=== PATIENT | female | born 1965 | race Caucasian/White ===

== ENCOUNTER → 2017-01-20 | Outpatient (CLI) | payer BC ==
[~2017-01-20] MED LIST: ATEN50TA2 PO; DEXI30CA PO; IBUP200C PO; SIMV20TA2 PO
[2017-01-20 09:02] LABS: MEAN CORPUSCULAR HEMOGLOBIN 27.4 pg (27.0-33.0); MEAN CORPUSCULAR HGB CONC 33.2 g/dl (32.0-36.5); MEAN CORPUSCULAR VOLUME 82.5 fl (80.0-96.0); PLATELET COUNT, AUTOMATED 101 k/mm3 (150-450); RED CELL DISTRIBUTION WIDTH 13.4 % (11.5-14.5); WHITE BLOOD COUNT 3.4 K/mm3 (4.0-10.0)
[2017-01-20 09:34] LABS: ALBUMIN 3.6 GM/DL (3.2-5.2); ALKALINE PHOSPHATASE 86 U/L (45-117); ALT/SGPT 19 U/L (12-78); ANION GAP 7 MEQ/L (8-16); AST/SGOT 9 U/L (15-37); BILIRUBIN,TOTAL 0.3 MG/DL (0.2-1.0); BLOOD UREA NITROGEN 12 MG/DL (7-18); CALCIUM LEVEL 8.3 MG/DL (8.5-10.1); CARBON DIOXIDE LEVEL 28 MEQ/L (21-32); CHLORIDE LEVEL 110 MEQ/L (98-107); CHOLESTEROL LEVEL 219 MG/DL (<200); CREATININE FOR GFR 0.79 MG/DL (0.55-1.02); GLOMERULAR FILTRATION RATE > 60.0 (>51); GLUCOSE, FASTING 115 MG/DL (70-105); POTASSIUM SERUM 4.7 MEQ/L (3.5-5.1); SODIUM LEVEL 145 MEQ/L (136-145); TOTAL PROTEIN 7.2 GM/DL (6.4-8.2); TRIGLYCERIDES LEVEL 98 MG/DL (<150)
== END ==
LOC: M LAB 08:17
PROVIDERS: ATTEND Physician Assistant
DX: I10 Essential (primary) hypertension (principal)

== ENCOUNTER → 2017-02-06 | Outpatient (REF) | payer BC ==
[2017-02-06 14:25] LABS: REASON FOR REVIEW COMPREHENSIVE REVIEW
[2017-02-06 14:47] LABS: FOLATE > 24.0 NG/ML; VITAMIN B12 LEVEL 536 PG/ML
== END ==
LOC: M LAB REF 12:55
PROVIDERS: ATTEND Internal Medicine Medical Oncology
DX: D69.6 Thrombocytopenia, unspecified (principal)

== ENCOUNTER 2017-02-23 19:07 | Emergency (ER) | payer BC ==
[~2017-02-23] VITALS: Ht 152.4 cm; Wt 72.6 kg
[2017-02-23] MEDS ORDERED: OXYCODONE/APAP 5MG/325MG(BULK FOR ED) 1 TABLET PO ONE (22:15)
[2017-02-23] MEDS ORDERED: PERC5TAB6 PO (22:24)
[2017-02-23 22:52] VITALS: BP 112/52
--- NOTE | 2017-02-24 08:43 | REP ---
RIGHT SHOULDER, THREE VIEW: HISTORY: Pain. COMPARISON: 01/08/2009 There is no acute fracture or dislocation. There is narrowing of the joint spaces. Osteophytes are present at the acromioclavicular joint. Calcification is present lateral to the head of the humerus. This represents ligamentous or tendon calcification. IMPRESSION: Degenerative change as described above. Signed by Med Adan MD 02/24/2017 08:53 A
== END 2017-02-23 22:53 | disposition home or self-care (01) ==
LOC: M ED 20:14
DX: M25.511 Pain in right shoulder (principal); M19.011 Primary osteoarthritis, right shoulder; K58.9 Irritable bowel syndrome, unspecified; Z91.81 History of falling; Z79.899 Other long term (current) drug therapy

== ENCOUNTER → 2017-09-25 | Outpatient (REF) | payer BC ==
[~2017-09-25] MED LIST changes: -DEXI30CA PO; +DEXI30CA2 PO; -IBUP200C PO; +IBUP200C10 PO; +PERC5TAB12 PO
== END ==
LOC: M LAB REF 15:03
PROVIDERS: ATTEND Physician Assistant
DX: R30.0 Dysuria (principal)

== ENCOUNTER → 2019-02-24 | Outpatient (CLI) | payer BC ==
[~2019-02-24] MED LIST changes: -IBUP200C10 PO; +IBUP200C25 PO; +SLOW160T12 PO; +SLOW160T8 PO; +VITA50005 PO
--- NOTE | 2019-02-24 08:21 | REP ---
Clinical: Thrombocytopenia. Technique: Real time perez scale ultrasound using curved array transducer. Findings: Liver demonstrates mild fatty infiltration without focal hepatic lesion. Spleen is enlarged and measures 11.9 x 4.7 x 12.7 cm (splenic index 710). No focal splenic lesion identified. Pancreas is unremarkable. The bilateral kidneys are normal in reniform shape without hydronephrosis. Right kidney measures 10.9 x 5.9 x 5.9 cm. Left kidney measures 10.4 x 5.8 x 5.9 cm. The patient is noted to be status post cholecystectomy. No biliary ductal dilatation is appreciated and the common bile duct measures 5.6 mm diameter. Abdominal aorta appears normal and measures 2.2 cm maximal diameter. No ascites. Impression: 1. Hepatic steatosis. 2. Splenomegaly. Electronically Signed by Taiwo Bedoya MD 02/24/2019 08:12 A
== END ==
LOC: M RAD 07:29
PROVIDERS: ATTEND Internal Medicine Hematology & Oncology
DX: D69.6 Thrombocytopenia, unspecified (principal); R16.1 Splenomegaly, not elsewhere classified; K76.0 Fatty (change of) liver, not elsewhere classified

== ENCOUNTER → 2019-04-02 | Outpatient (CLI) | payer BC ==
[~2019-04-02] MED LIST changes: +HYDR-3713 PO; +KEFL500C17 PO; +PRED20TA PO; +ULTR50TA8 PO
--- NOTE | 2019-04-02 15:02 | REP ---
Clinical: Pain with recent trauma/injury. Technique: AP, lateral, bilateral oblique views of the right wrist. Findings: Mild osteopenia and generalized age-related changes are appreciated without evidence for acute fracture or dislocation. There is a chronic-appearing smoothly delineated ovoid calcification anterior to the proximal carpal row measuring approximately 8 mm in maximal length. Finding is nonspecific but should be correlated with history and may be related to prior steroid injection for carpal tunnel syndrome versus calcific tendinopathy. Impression: 1. Osteopenia and generalized age-related changes. 2. No acute fracture dislocation. 3. Calcification as described above requires correlation. Electronically Signed by Taiwo Bedoya MD 04/02/2019 10:46 A
--- NOTE | 2019-04-02 15:02 | REP ---
Clinical: Pain. Technique: AP, lateral, bilateral oblique views of the right hand. Findings: Generalized osteopenia and age-related degenerative changes are appreciated along with mild arthritic changes primarily involving the interphalangeal joints. No acute fracture or dislocation. No focal swelling. An ovoid smooth calcification is identified overlying the proximal carpal row in the wrist which may represent underlying chronic calcific tendinopathy or changes related to prior steroid injection. Impression: Generalized osteopenia and degenerative changes. No acute fracture or dislocation. Electronically Signed by Taiwo Bedoya MD 04/02/2019 10:46 A
== END ==
LOC: M RAD 10:17
PROVIDERS: ATTEND Physician Assistant
DX: M85.841 Other specified disorders of bone density and structure, right hand (principal); M71.431 Calcium deposit in bursa, right wrist; M19.041 Primary osteoarthritis, right hand

== ENCOUNTER 2019-04-05 08:01 | Emergency (ER) | payer BC ==
[~2019-04-05] VITALS: Ht 152.4 cm; Wt 75.5 kg
[~2019-04-05 08:01] MED LIST changes: -HYDR-3713 PO; -KEFL500C17 PO; -PRED20TA PO; -ULTR50TA8 PO
[2019-04-05 08:02] VITALS: BP 152/85
[2019-04-05] MEDS ORDERED: PRED20TA PO ×2 (08:08→08:52)
[2019-04-05] MEDS ORDERED: HYDR-3713 PO (08:08)
[2019-04-05] MEDS ORDERED: ULTR50TA8 PO (08:52)
[2019-04-05] MEDS ORDERED: KEFL500C17 PO (08:52)
== END 2019-04-05 09:06 | disposition home or self-care (01) ==
LOC: M ED 08:01
DX: M77.8 Other enthesopathies, not elsewhere classified (principal); G43.909 Migraine, unspecified, not intractable, without status migrainosus; K21.9 Gastro-esophageal reflux disease without esophagitis

== ENCOUNTER 2020-04-08 09:31 | Emergency (ER) | payer BC ==
[~2020-04-08] VITALS: Ht 152.4 cm; Wt 77.4 kg
[~2020-04-08 09:31] MED LIST changes: +HYDR-3713 PO; +KEFL500C17 PO; +PRED20TA PO; -SIMV20TA2 PO; +SIMV20TA22 PO; +ULTR50TA8 PO
[2020-04-08] MEDS ORDERED: KETOROLAC 30 MG/ML 1ML VIAL IV ONE (10:15)
[2020-04-08] MEDS ORDERED: ISOVUE-370 76% 100ML VIAL As Ordered ONE (11:09)
[2020-04-08] MEDS ORDERED: CYCL5TAB PO (11:49)
[2020-04-08] MEDS ORDERED: NAPR-837 PO (11:49)
--- NOTE | 2020-04-08 11:52 | REP ---
Clinical: Pain and swelling. Technique: Axial contrast enhanced images from the skull base to the thoracic inlet with coronal and sagittal re-formations using 75 ml Isovue 370 intravenous contrast material. Findings: The visualized nasopharynx, oropharynx and hypopharynx along with surrounding soft tissue structures are normal. There is no evidence for mass or mass effect. Parotid and glandular tissue appears normal. Airway is patent, midline and grossly unremarkable. Vascular structures of the neck are symmetric and normal. No adenopathy. No inflammatory stranding, fluid collection or mass. Osseous structures are intact. Visualized sinuses and mastoid air cells are clear. Impression: Normal contrast enhanced CT of the neck. Electronically Signed by Taiwo Bedoya MD 04/08/2020 11:44 A
[2020-04-08 12:03] VITALS: BP 162/73
== END 2020-04-08 12:03 | disposition home or self-care (01) ==
LOC: M ED 09:31
DX: M54.2 Cervicalgia (principal); K21.9 Gastro-esophageal reflux disease without esophagitis; E78.5 Hyperlipidemia, unspecified; D69.6 Thrombocytopenia, unspecified; Z79.899 Other long term (current) drug therapy
CPT/HCPCS: 70491; 80047; 96374; 99284; J1885; Q9967

== ENCOUNTER 2020-04-30 19:00 | Emergency (ER) | payer BC ==
[~2020-04-30 19:00] MED LIST changes: +CYCL5TAB PO; +NAPR-837 PO
[2020-04-30] MEDS ORDERED: ISOVUE-370 76% 100ML VIAL As Ordered ONE (22:26)
[2020-05-01] MEDS ORDERED: cefTRIAXone SOD 1GM VIAL (J0696 PER 250MG) ONE (20:11)
[2020-05-01] MEDS ORDERED: AZITHROMYCIN 250MG TABLET As Ordered ONE (20:11)
[2020-05-01] MEDS ORDERED: LIDOCAINE 1% SDV 5ML VIAL ONE (20:11)
[2020-05-01] MEDS ORDERED: AZITHROMYCIN 250MG TABLET ONE (20:11)
[2020-05-01] MEDS ORDERED: LIDOCAINE 1% SDV 5ML VIAL As Ordered ONE (20:12)
[2020-05-01] MEDS ORDERED: cefTRIAXone SOD 1GM VIAL (J0696 PER 250MG) As Ordered ONE (20:12)
[2020-05-27 14:10] LABS: BLOOD UREA NITROGEN 14 MG/DL (7-18); CALCIUM LEVEL 8.7 MG/DL (8.5-10.1); CARBON DIOXIDE LEVEL 23 MEQ/L (21-32); CHLORIDE LEVEL 109 MEQ/L (98-107); CK-MB VALUE MASS < 1.0 NG/ML (<3.6); CPK CREATINE PHOSPHOKINASE 110 U/L (26-192); CREATININE FOR GFR 0.79 MG/DL (0.55-1.30); GLOMERULAR FILTRATION RATE > 60.0 (>51); GLUCOSE, FASTING 201 MG/DL (70-100); MAGNESIUM LEVEL 2.1 MG/DL (1.8-2.4); NT-PRO BNP 39 PG/ML (<125); POTASSIUM SERUM 3.4 MEQ/L (3.5-5.1); SODIUM LEVEL 142 MEQ/L (136-145); TROPONIN I < 0.02 NG/ML (< 0.10)
[2020-06-03 08:59] LABS: PARTIAL THROMBOPLASTIN TIME 26.1 SECONDS (25.0-38.4); PROTHROMBIN TIME 13.4 SECONDS (11.8-14.0)
[2020-06-03 09:01] LABS: BASO % 0.6 % (0.0-1.0); EOS # 0.1 10^3/uL (0.0-0.5); EOS % 1.2 % (0.0-3.0); HEMATOCRIT 41.3 % (36.0-47.0); HEMOGLOBIN 14.2 g/dl (12.0-15.5); LYMPH # 1.7 10^3/uL (1.5-5.0); LYMPH % 35.1 % (24.0-44.0); MEAN CORPUSCULAR HEMOGLOBIN 28.3 pg (27.0-33.0); MEAN CORPUSCULAR HGB CONC 34.4 g/dl (32.0-36.5); MEAN CORPUSCULAR VOLUME 82.3 fl (80.0-96.0); MONO # 0.3 10^3/uL (0.0-0.8); NEUTROPHILS # 2.7 10^3/uL (1.5-8.5); NEUTROPHILS % 56.9 % (36.0-66.0); PLATELET COUNT, AUTOMATED 113 10^3/uL (150-450); RED BLOOD COUNT 5.02 10^6/uL (4.00-5.40); WHITE BLOOD COUNT 4.8 10^3/uL (4.0-10.0)
--- NOTE | 2020-06-22 15:42 | ECGEPIP ---
SINUS TACHYCARDIA LOW QRS VOLTAGE IN PRECORDIAL LEADS MINIMAL ST DEPRESSION R/O ACS - CLINICAL CORRELATION ADVISED INFERIOR WALL LA- AGE INDETERMINATE DELAYED R WAVE PROGRESSION NO PRIOR DUE TO DOWNTIME SEE SCANNED DOWNTIME REPORT MTDD
== END 2020-05-01 00:10 | disposition home or self-care (01) ==
LOC: M ED 19:00
DX: R00.2 Palpitations (principal); R00.0 Tachycardia, unspecified; Z79.899 Other long term (current) drug therapy; I10 Essential (primary) hypertension; E78.5 Hyperlipidemia, unspecified; K75.81 Nonalcoholic steatohepatitis (NASH)
CPT/HCPCS: 71046; 71275; 80048; 82550; 82553; 83735; 83880; 84484; 85025; 85610; 85730; 93005; 99285; J0696; Q9967

== ENCOUNTER → 2020-05-02 | Outpatient (CLI) | payer BC ==
--- NOTE | 2020-05-27 10:03 | REPMRS ---
Patient History The patient states she had a clinical breast exam in April 2020. Family history of unknown cancer at age 50 or over in maternal grandmother, unknown cancer at age 45 in sister. Digital Woman Screen Mammo: May 02, 2020 - Exam #: [id number] Bilateral CC and MLO view(s) were taken. Technologist: Sophia Walker Technologist Prior study comparison: November 17, 2014, bilateral digital mammo screening bilat performed at [facility]. August 20, 2012, bilateral digital mammo screening bilat performed at [facility]. August 05, 2011, bilateral bilat screen digital mammo performed at [facility]. FINDINGS: There are scattered fibroglandular densities. The Volpara volumetric breast density category is:B. There has been no change in the appearance of the mammogram from the prior studies. There is a mild amount of scattered fibroglandular density which is fairly symmetric. There is no interval development of dominant mass, architectural distortion, or grouped microcalcification suggestive of malignancy. 3-D tomosynthesis shows no additional findings. Report was delayed due to a protracted network disruption experienced by this facility. Assessment: BI-RADS/ACR category 1 mammogram. Negative Mammogram. Recommendation Routine screening mammogram of both breasts in 1 year (for women over age 40). This patient's Lifetime Breast Cancer Risk is estimated at 8.8 %. This mammogram was interpreted with the aid of an FDA-approved computer-aided dectection system. Electronically Signed By: Fantasma Em MD 05/27/20 1002
== END ==
LOC: M WHC 12:44
PROVIDERS: ATTEND Nurse Practitioner
DX: Z12.31 Encounter for screening mammogram for malignant neoplasm of breast (principal); Z80.9 Family history of malignant neoplasm, unspecified

== ENCOUNTER 2020-05-24 09:21 | Emergency (ER) | payer BC ==
[~2020-05-24] VITALS: Ht 152.4 cm; Wt 77.2 kg
--- NOTE | 2020-05-24 10:34 | REPVR ---
PROCEDURE INFORMATION: Exam: CT Cervical Spine Without Contrast Exam date and time: 05/24/2020 10:05 AM Age: 54 years old Clinical indication: Neck pain; Additional info: Cervical tenderness, with left sided pain TECHNIQUE: Imaging protocol: Computed tomography images of the cervical spine without contrast. Radiation optimization: All CT scans at this facility use at least one of these dose optimization techniques: automated exposure control; mA and/or kV adjustment per patient size (includes targeted exams where dose is matched to clinical indication); or iterative reconstruction. COMPARISON: CT Neck with contrast 04/08/2020 11:09 AM FINDINGS: Vertebrae: The cervical vertebral bodies are normal height and alignment.No acute fracture or dislocation is seen. Discs/Spinal canal/Neural foramina: There are mild multilevel degenerative changes including degenerative disc disease, spondylosis and facet degenerative changes. There is no evidence of spinal canal narrowing. Epidural space: There is no evidence of epidural masses or hemorrhage. Prevertebral Space: The prevertebral soft tissues appear normal. Soft tissues: There is straightening of the cervical spine which could be secondary to positioning or muscle spasm. There are no soft tissue masses or fluid collections. Lungs: Lung apices are normal. IMPRESSION: No acute fracture or dislocation is seen. Electronically signed by: Richar Ruggiero On 05/24/2020 10:34:30 AM
[2020-05-24] MEDS ORDERED: LIDOCAINE 2% MDV 20ML VIAL SC ONE (11:15)
[2020-05-24 12:00] VITALS: BP 136/78
== END 2020-05-24 12:05 | disposition home or self-care (01) ==
LOC: M ED 09:21
DX: S16.1XXA Strain of muscle, fascia and tendon at neck level, initial encounter (principal); M62.838 Other muscle spasm; I10 Essential (primary) hypertension; E11.9 Type 2 diabetes mellitus without complications; Z87.19 Personal history of other diseases of the digestive system; Z79.899 Other long term (current) drug therapy; Z79.1 Long term (current) use of non-steroidal anti-inflammatories (NSAID)

== ENCOUNTER → 2021-03-05 | Outpatient (REF) | payer BC | LOC: M LAB REF 13:44 | PROVIDERS: ATTEND Physician Assistant Medical | DX: R05 Cough (principal) ==

== ENCOUNTER 2021-03-07 23:23 | Emergency (ER) | payer BC ==
[~2021-03-07] VITALS: Ht 152.4 cm; Wt 72.7 kg
[2021-03-07] MEDS ORDERED: EXCETAB33 PO (23:35)
[2021-03-07] MEDS ORDERED: IBUP1TAB6 PO (23:35)
[2021-03-07] MEDS ORDERED: APAP500T10 PO (23:35)
[2021-03-07] MEDS ORDERED: ASPI81TA26 PO (23:35)
[2021-03-08] MEDS ORDERED: NS 1,000 ML IV ONE (00:25)
[2021-03-08 00:50] LABS: HEMATOCRIT 39.6 % (36.0-47.0); HEMOGLOBIN 13.4 g/dl (12.0-15.5); LYMPH # 0.3 10^3/uL (1.5-5.0); LYMPH % 18.4 % (24.0-44.0); MEAN CORPUSCULAR HEMOGLOBIN 28.3 pg (27.0-33.0); MEAN CORPUSCULAR HGB CONC 33.8 g/dl (32.0-36.5); MEAN CORPUSCULAR VOLUME 83.7 fl (80.0-96.0); MONO # 0.1 10^3/uL (0.0-0.8); MONO % 4.5 % (2.0-8.0); NEUTROPHILS # 1.4 10^3/uL (1.5-8.5); NEUTROPHILS % 76.5 % (36.0-66.0); RED BLOOD COUNT 4.73 10^6/uL (4.00-5.40); WHITE BLOOD COUNT 1.8 10^3/uL (4.0-10.0)
[2021-03-08 01:02] LABS: D-DIMER QUANT 1106.65 ng/ml (<500)
[2021-03-08 01:26] LABS: ALBUMIN 3.1 GM/DL (3.2-5.2); ALT/SGPT 39 U/L (12-78); BILIRUBIN,TOTAL 0.5 MG/DL (0.2-1.0); BLOOD UREA NITROGEN 5 MG/DL (7-18); CALCIUM LEVEL 8.4 MG/DL (8.5-10.1); CARBON DIOXIDE LEVEL 28 MEQ/L (21-32); CHLORIDE LEVEL 107 MEQ/L (98-107); CK-MB VALUE MASS < 1.0 NG/ML (<3.6); CPK CREATINE PHOSPHOKINASE 47 U/L (26-192); CREATININE FOR GFR 0.47 MG/DL (0.55-1.30); FERRITIN 207 NG/ML (8-252); GLOMERULAR FILTRATION RATE > 60.0 (>51); GLUCOSE, FASTING 121 MG/DL (70-100); LDH LACTATE DEHYDROGENASE 309 U/L (84-246); MB/CK RELATIVE INDEX 2.13 (< OR =4); POTASSIUM SERUM 3.5 MEQ/L (3.5-5.1); SODIUM LEVEL 141 MEQ/L (136-145); TOTAL PROTEIN 6.8 GM/DL (6.4-8.2); TROPONIN I < 0.02 NG/ML (< 0.10)
--- NOTE | 2021-03-08 01:35 | REPVR ---
PROCEDURE INFORMATION: Exam: XR Chest Exam date and time: 03/08/2021 12:49 AM Age: 55 years old Clinical indication: Other: Coronavirus workup TECHNIQUE: Imaging protocol: XR of the chest. Views: 1 view. COMPARISON: CR Chest, 2 view PA, Lat 04/30/2020 9:19 PM FINDINGS: Lungs: Unremarkable. No consolidation. Pleural spaces: Unremarkable. No pleural effusion. No pneumothorax. Heart/Mediastinum: Unremarkable. No cardiomegaly. Bones/joints: Unremarkable. IMPRESSION: No acute findings. Electronically signed by: Robert Roberts On 03/08/2021 01:35:27 AM
[2021-03-08] MEDS ORDERED: ISOVUE-370 76% 100ML VIAL As Ordered ONE (02:37)
--- NOTE | 2021-03-08 03:11 | REPVR ---
PROCEDURE INFORMATION: Exam: US Duplex Left Lower Extremity Veins, Limited Exam date and time: 03/08/2021 3:00 AM Age: 55 years old Clinical indication: Pain; Leg, lower; Left; Additional info: SAM, derek reid, lonnie, left leg pain TECHNIQUE: Imaging protocol: Real-time Duplex ultrasound of the Left Lower Extremity with 2-D perez scale, color Doppler flow and spectral waveform analysis with image documentation. Limited exam focused on the left lower extremity veins. COMPARISON: No relevant prior studies available. FINDINGS: Left deep veins: Unremarkable. The common femoral, femoral, proximal profunda femoral and popliteal veins are patent without thrombus. Normal Doppler waveforms. Normal compressibility and/or augmentation response. Left superficial veins: Unremarkable. Saphenofemoral junction is patent without thrombus. Soft tissues: Unremarkable. IMPRESSION: No evidence of deep vein thrombosis. Electronically signed by: Robert Roberts On 03/08/2021 03:11:03 AM
--- NOTE | 2021-03-08 04:10 | REPVR ---
PROCEDURE INFORMATION: Exam: CTA Chest With Contrast Exam date and time: 03/08/2021 3:32 AM Age: 55 years old Clinical indication: Shortness of breath and other: Covid, elevated ddimer; Additional info: SOB, tachy, ddimer, covid TECHNIQUE: Imaging protocol: Computed tomographic angiography of the chest with contrast. 3D rendering (Not supervised by radiologist): MIP and/or 3D reconstructed images were created by the technologist. Radiation optimization: All CT scans at this facility use at least one of these dose optimization techniques: automated exposure control; mA and/or kV adjustment per patient size (includes targeted exams where dose is matched to clinical indication); or iterative reconstruction. Contrast material: ISOVUE 370; Contrast volume: 75 ml; Contrast route: INTRAVENOUS (IV); COMPARISON: CT ANGIO CHEST 04/30/2020 10:38 PM FINDINGS: Pulmonary arteries: Normal. No pulmonary emboli. Aorta: Unremarkable. No aortic aneurysm. No aortic dissection. Lungs: There are multifocal ground-glass opacities in both lungs in a predominantly subpleural distribution. Airways are clear. Pleural spaces: Unremarkable. No pneumothorax. No pleural effusion. Heart: Unremarkable. No cardiomegaly. No pericardial effusion. Lymph nodes: Small reactive hilar lymph nodes. No mediastinal adenopathy. Spleen: The spleen is enlarged. Bones/joints: Unremarkable. No acute fracture. Soft tissues: Unremarkable. IMPRESSION: 1. Multifocal ground-glass airspace opacities suspicious for covid-19 pneumonia. 2. Splenomegaly. Electronically signed by: Robert Roberts On 03/08/2021 04:10:24 AM
[2021-03-08 05:08] VITALS: BP 154/72
--- NOTE | 2021-03-08 09:28 | ECGEPIP ---
[facility] - ED Test Date: 2021-03-08 Pat Name: LIZ CUMMINGS Department: Room: - Gender: Female Web Pressman: TORREY : 1965 Requested By: ARNULFO Lopez Order Number: [id number] Reading MD: Markel Simon Measurements Intervals [place] Rate: 99 P: 31 FL: 136 QRS: 10 QRSD: 68 T: 22 QT: 352 QTc: 451 Interpretive Statements Normal sinus rhythm NONSPECIFIC T WAVE ABNORMALITY(S) SIMILAR TO 10/14/15 Electronically Signed on 03-08-2021 9:28:15 EDT by Markel Simon
--- NOTE | 2021-03-09 07:35 | ED PDOC ---
Post-Departure Follow-Up carrie feldman faxed formal report of cta chest for fu Mark Byers MD Mar 09, 2021 07:35
== END 2021-03-08 05:26 | disposition home or self-care (01) ==
LOC: M ED 23:23
DX: U07.1 COVID-19 (principal); J12.82 Pneumonia due to coronavirus disease 2019; I10 Essential (primary) hypertension; E78.5 Hyperlipidemia, unspecified; Z79.899 Other long term (current) drug therapy; Z79.82 Long term (current) use of aspirin
CPT/HCPCS: 71045; 71275; 80053; 82550; 82553; 82728; 83605; 83615; 84484; 85025; 85379; 85384; 93005; 93041; 93971; 94760; 96360; 96361; 99285; Q9967

== ENCOUNTER 2021-04-01 19:41 | Emergency (ER) | payer BC ==
[~2021-04-01] VITALS: Ht 152.4 cm; Wt 73.8 kg
[~2021-04-01 19:41] MED LIST changes: +APAP500T10 PO; +ASPI81TA26 PO; +EXCETAB33 PO; +IBUP1TAB6 PO
[2021-04-01] MEDS ORDERED: METAL LOCK LOOP XX ONE (20:08)
[2021-04-01] MEDS ORDERED: ASPIRIN 81 MG CHEW TABLET PO ONE (20:15)
[2021-04-01 20:25] LABS: BASO % 0.3 % (0.0-1.0); EOS # 0.1 10^3/uL (0.0-0.5); EOS % 2.1 % (0.0-3.0); HEMATOCRIT 43.7 % (36.0-47.0); HEMOGLOBIN 14.1 g/dl (12.0-15.5); LYMPH # 1.8 10^3/uL (1.5-5.0); LYMPH % 29.8 % (24.0-44.0); MEAN CORPUSCULAR HEMOGLOBIN 27.7 pg (27.0-33.0); MEAN CORPUSCULAR HGB CONC 32.3 g/dl (32.0-36.5); MEAN CORPUSCULAR VOLUME 85.9 fl (80.0-96.0); MONO # 0.5 10^3/uL (0.0-0.8); MONO % 7.6 % (2.0-8.0); NEUTROPHILS # 3.6 10^3/uL (1.5-8.5); NEUTROPHILS % 59.9 % (36.0-66.0); PLATELET COUNT, AUTOMATED 110 10^3/uL (150-450); RED BLOOD COUNT 5.09 10^6/uL (4.00-5.40); WHITE BLOOD COUNT 6.1 10^3/uL (4.0-10.0)
[2021-04-01] MEDS ORDERED: NS 1,000 ML IV ONE ×2 (20:45→22:15)
[2021-04-01 20:52] LABS: ALBUMIN 3.2 GM/DL (3.2-5.2); ALT/SGPT 25 U/L (12-78); BILIRUBIN,DIRECT < 0.1 MG/DL (0.0-0.2); BILIRUBIN,TOTAL 0.2 MG/DL (0.2-1.0); BLOOD UREA NITROGEN 6 MG/DL (7-18); CALCIUM LEVEL 8.4 MG/DL (8.5-10.1); CARBON DIOXIDE LEVEL 25 MEQ/L (21-32); CHLORIDE LEVEL 110 MEQ/L (98-107); CK-MB VALUE MASS < 1.0 NG/ML (<3.6); CPK CREATINE PHOSPHOKINASE 54 U/L (26-192); CREATININE FOR GFR 0.68 MG/DL (0.55-1.30); FREE T4 0.93 NG/DL (0.76-1.46); GLOMERULAR FILTRATION RATE > 60.0 (>51); GLUCOSE, FASTING 155 MG/DL (70-100); LIPASE 274 U/L (73-393); MB/CK RELATIVE INDEX 1.85 (< OR =4); NT-PRO BNP 92 PG/ML (<125); POTASSIUM SERUM 3.4 MEQ/L (3.5-5.1); SODIUM LEVEL 143 MEQ/L (136-145); TOTAL PROTEIN 7.1 GM/DL (6.4-8.2); TROPONIN I < 0.02 NG/ML (< 0.10)
--- NOTE | 2021-04-01 22:12 | REPVR ---
PROCEDURE INFORMATION: Exam: XR Chest Exam date and time: 04/01/2021 8:12 PM Age: 55 years old Clinical indication: Chest pain TECHNIQUE: Imaging protocol: XR of the chest. Views: 1 view. COMPARISON: CR PORTABLE CHEST X-RAY 03/08/2021 12:33 AM FINDINGS: Lungs: There are mild opacities in a predominantly peripheral distribution in the right upper lobe and both lung bases. Pleural spaces: Unremarkable. No pleural effusion. No pneumothorax. Heart/Mediastinum: Unremarkable. No cardiomegaly. Bones/joints: There are endplate spurs in the thoracic spine. IMPRESSION: Mild opacities in a predominantly peripheral distribution in the right upper lobe and both lung bases, which may represent pneumonia. Electronically signed by: Joao Carey On 04/01/2021 22:12:26 PM
--- NOTE | 2021-04-01 22:56 | ECGEPIP ---
[facility] - ED Test Date: 2021-04-01 Pat Name: LIZ CUMMINGS Department: Room: - Gender: Female Electronics Technician Apprentice: BEVERLY : 1965 Requested By: ARNULFO Lopez Order Number: [id number] Reading MD: Darryl Ware Measurements Intervals [place] Rate: 132 P: 33 [place]: 142 QRS: 23 QRSD: 64 T: 35 QT: 290 QTc: 429 Interpretive Statements Sinus tachycardia Nonspecific ST-T wave abnormalities Rate increased from tracing done 03-08-21 Electronically Signed on 04-01-2021 22:55:50 EDT by Darryl Ware
[2021-04-01] MEDS ORDERED: POTASSIUM CHLORIDE 10 MEQ SR TABLET PO ONE (23:15)
[2021-04-02] MEDS ORDERED: NS 1,000 ML IV ONE (00:55)
[2021-04-02 01:43] LABS: CK-MB VALUE MASS < 1.0 NG/ML (<3.6); CPK CREATINE PHOSPHOKINASE 43 U/L (26-192); MB/CK RELATIVE INDEX 2.33 (< OR =4); TROPONIN I < 0.02 NG/ML (< 0.10)
[2021-04-02 02:15] VITALS: BP 157/72
--- NOTE | 2021-04-03 10:53 | ECGEPIP ---
[facility] - ED Test Date: 2021-04-01 Pat Name: LIZ CUMMINGS Department: Room: - Gender: Female Staff Sonographer: ED : 1965 Requested By: MOLLY Sharp Order Number: [id number] Reading MD: Maribel Gomez Measurements Intervals [place] Rate: 126 P: 27 CO: 140 QRS: 13 QRSD: 66 T: 31 QT: 312 QTc: 451 Interpretive Statements Sinus tachycardia NSTTW abnormalities similar 04/01/21 Electronically Signed on 04-03-2021 10:53:32 EDT by Maribel Gomez
--- NOTE | 2021-04-03 10:55 | ECGEPIP ---
[facility] - ED Test Date: 2021-04-02 Pat Name: LIZ CUMMINGS Department: Room: - Gender: Female Call Center Rn: : 1965 Requested By: MOLLY Sharp Order Number: [id number] Reading MD: Maribel Gomez Measurements Intervals [place] Rate: 119 P: 23 RI: 134 QRS: 8 QRSD: 66 T: 22 QT: 328 QTc: 461 Interpretive Statements Sinus tachycardia NSTTW abnormalities similar 04/01/21 Electronically Signed on 04-03-2021 10:54:40 EDT by Maribel Gomez
== END 2021-04-02 02:53 | disposition home or self-care (01) ==
LOC: M ED 19:41
DX: R00.2 Palpitations (principal); E86.0 Dehydration; R00.0 Tachycardia, unspecified; I10 Essential (primary) hypertension; E78.5 Hyperlipidemia, unspecified; K21.9 Gastro-esophageal reflux disease without esophagitis; Z86.16 Personal history of COVID-19; Z79.899 Other long term (current) drug therapy; Z79.82 Long term (current) use of aspirin

== ENCOUNTER 2021-07-05 09:12 | Emergency (ER) | payer BC ==
[~2021-07-05] VITALS: Ht 152.4 cm; Wt 69.6 kg
[2021-07-05] MEDS ORDERED: CLOB0.0548 (09:40)
[2021-07-05] MEDS ORDERED: TRIA1CR80 (09:40)
[2021-07-05] MEDS ORDERED: LOSA50TA88 (09:40)
[2021-07-05 12:06] VITALS: BP 152/82
--- NOTE | 2021-07-05 12:49 | REP ---
INDICATION: chronic pain worsening. COMPARISON: Comparison right shoulder radiographs are from February 23, 2017. TECHNIQUE: Three views of the right shoulder. FINDINGS: The right glenohumeral and acromioclavicular joints are normally aligned. The AC joint is narrowed however and there is osteophyte formation at the AC joint consistent with osteoarthritis. There is mild diffuse osteopenia. No erosive changes seen. Periarticular soft tissues are unremarkable. No right rib abnormality is seen. IMPRESSION: AC joint osteoarthritis and diffuse osteopenia. No acute bony abnormality. <Electronically signed by Fantasma Em > 07/05/21 [id number]
== END 2021-07-05 13:45 | disposition home or self-care (01) ==
LOC: M ED 09:12
DX: M19.011 Primary osteoarthritis, right shoulder (principal); M85.811 Other specified disorders of bone density and structure, right shoulder; R21 Rash and other nonspecific skin eruption; I10 Essential (primary) hypertension; E78.5 Hyperlipidemia, unspecified; K21.9 Gastro-esophageal reflux disease without esophagitis; K76.0 Fatty (change of) liver, not elsewhere classified; R73.03 Prediabetes; Z86.16 Personal history of COVID-19; Z79.899 Other long term (current) drug therapy; Z79.52 Long term (current) use of systemic steroids

== ENCOUNTER → 2021-09-23 | Outpatient (CLI) | payer BC ==
[~2021-09-23] MED LIST changes: +CLOB0.0548; +LOSA50TA28; +TRIA1CR80
== END ==
LOC: M SLEEP HO 10:23
PROVIDERS: ATTEND Internal Medicine Cardiovascular Disease
DX: I27.20 Pulmonary hypertension, unspecified (principal)

== ENCOUNTER → 2021-10-02 | Outpatient (REF) | payer BC ==
[~2021-10-02] MED LIST changes: -LOSA50TA28; +LOSA50TA88
== END ==
LOC: M LAB REF 16:20
PROVIDERS: ATTEND Physician Assistant
DX: R50.9 Fever, unspecified (principal); R53.83 Other fatigue

== ENCOUNTER 2022-01-13 20:47 | Emergency (ER) | payer BC ==
[~2022-01-13] VITALS: Ht 152.4 cm; Wt 71.8 kg
[~2022-01-13 20:47] MED LIST changes: +LOSA50TA28; -LOSA50TA88
[2022-01-13] MEDS ORDERED: DEXI60CA2 (21:07)
[2022-01-13] MEDS ORDERED: ATEN50TA2 (21:07)
[2022-01-13 21:40] LABS: BASO % 0.5 % (0.0-1.0); EOS # 0.1 10^3/uL (0.0-0.5); EOS % 0.8 % (0.0-3.0); HEMATOCRIT 42.5 % (36.0-47.0); HEMOGLOBIN 14.4 g/dl (12.0-15.5); LYMPH # 1.8 10^3/uL (1.5-5.0); LYMPH % 28.7 % (24.0-44.0); MEAN CORPUSCULAR HEMOGLOBIN 28.4 pg (27.0-33.0); MEAN CORPUSCULAR HGB CONC 33.9 g/dl (32.0-36.5); MEAN CORPUSCULAR VOLUME 83.8 fl (80.0-96.0); MONO # 0.4 10^3/uL (0.0-0.8); MONO % 5.9 % (2.0-8.0); NEUTROPHILS % 63.8 % (36.0-66.0); PLATELET COUNT, AUTOMATED 117 10^3/uL (150-450); RED BLOOD COUNT 5.07 10^6/uL (4.00-5.40); WHITE BLOOD COUNT 6.2 10^3/uL (4.0-10.0)
[2022-01-13 22:05] LABS: CK-MB VALUE MASS < 1.0 NG/ML (<3.6); CPK CREATINE PHOSPHOKINASE 146 U/L (26-192); MB/CK RELATIVE INDEX 0.68 (< OR =4)
[2022-01-13 22:06] LABS: ALBUMIN 4.1 GM/DL (3.2-5.2); BILIRUBIN,DIRECT 0.1 MG/DL (0.0-0.2); BILIRUBIN,TOTAL 0.5 MG/DL (0.2-1.0); C REACTIVE PROTEIN QUANTITATIV 0.46 MG/DL (0.00-0.30); TOTAL PROTEIN 7.7 GM/DL (6.4-8.2)
[2022-01-13] MEDS ORDERED: POTASSIUM CHLORIDE 10MEQ SR TABLET PO ONE (23:05)
[2022-01-13] MEDS ORDERED: POTA-151 PO (23:08)
[2022-01-13 23:16] VITALS: BP 154/82
== END 2022-01-13 23:36 | disposition home or self-care (01) ==
LOC: M ED 20:47
DX: R07.89 Other chest pain (principal); R00.2 Palpitations; R11.0 Nausea; E87.6 Hypokalemia; I10 Essential (primary) hypertension; K21.9 Gastro-esophageal reflux disease without esophagitis; E78.5 Hyperlipidemia, unspecified; G43.909 Migraine, unspecified, not intractable, without status migrainosus

== ENCOUNTER 2022-03-18 21:03 | Observation (INO) | payer BC ==
[~2022-03-18] VITALS: Ht 152.4 cm; Wt 73.2 kg
[~2022-03-18 21:03] MED LIST changes: +DEXI60CA2 PO; +EXCETAB32 PO; -EXCETAB33 PO; +POTA-151 PO
[2022-03-19] MEDS ORDERED: KETOROLAC 30 MG/ML 1ML VIAL As Ordered ONE (02:56)
[2022-03-19] MEDS ORDERED: atenoloL 25 MG TAB As Ordered ONE (02:57)
[2022-03-19 03:40] LABS: BASO % 0.3 % (0.0-1.0); HEMATOCRIT 40.7 % (36.0-47.0); HEMOGLOBIN 13.9 g/dl (12.0-15.5); LYMPH # 1.2 10^3/uL (1.5-5.0); LYMPH % 10.1 % (24.0-44.0); MEAN CORPUSCULAR HGB CONC 34.2 g/dl (32.0-36.5); MEAN CORPUSCULAR VOLUME 81.9 fl (80.0-96.0); MONO # 0.7 10^3/uL (0.0-0.8); MONO % 5.6 % (2.0-8.0); NEUTROPHILS # 9.8 10^3/uL (1.5-8.5); NEUTROPHILS % 83.7 % (36.0-66.0); PLATELET COUNT, AUTOMATED 132 10^3/uL (150-450); RED BLOOD COUNT 4.97 10^6/uL (4.00-5.40); RSV AMPLIFICATION NEGATIVE (NEGATIVE); WHITE BLOOD COUNT 11.7 10^3/uL (4.0-10.0)
[2022-03-19] MEDS ORDERED: BOOSTRIX/ADACEL VACCINE (DIPHTH/PERTUSS/ACELL/TETANUS) 0.5ML SYR IM.IMMUN ONE (06:30)
[2022-03-19] MEDS ORDERED: KETOROLAC 30 MG/ML 1ML VIAL IV ONE (07:35)
[2022-03-19 11:45] VITALS: BP 152/88
[2022-03-19] MEDS ORDERED: QC F0.52 PO (13:13)
[2022-03-19] MEDS ORDERED: COQ1100C5 PO (13:13)
[2022-03-19] MEDS ORDERED: POTA-151 PO (13:13)
[2022-03-19] MEDS ORDERED: VITMTA PO (13:13)
[2022-03-19] MEDS ORDERED: VITATAB73 PO (13:13)
[2022-03-19] MEDS ORDERED: VITA-183 PO (13:13)
[2022-03-19] MEDS ORDERED: [UNRECOGNIZED DRUG - CODE] PO (13:13)
[2022-03-19] MEDS ORDERED: ALFA250T PO (13:13)
[2022-03-19] MEDS ORDERED: HOME MED LIST COMPLETE! XX SCH (13:15)
[2022-03-19 14:00] VITALS: BP 156/72
[2022-03-19] MEDS: KETOROLAC 30 MG/ML 1ML VIAL IV SCH ×2 (14:10→20:47)
[2022-03-19] MEDS ORDERED: ACETAMINOPHEN TAB 650MG DOSE (2X325MG) PO SCH (16:00)
[2022-03-19] MEDS: ULTRACET TAB PO SCH ×2 (16:19→21:53)
[2022-03-19] MEDS: SENOKOT S TAB PO SCH (20:46)
[2022-03-19] MEDS: HEPARIN SOD (PORCINE) 5000UNITS/ML 1ML VIAL/SYRINGE SC SCH (20:47)
[2022-03-19] MEDS ORDERED: PANTOPRAZOLE 40MG TAB (PROTONIX) PO SCH (21:00)
[2022-03-19] MEDS ORDERED: atenoloL 50 MG TAB PO SCH (21:00)
[2022-03-19] MEDS ORDERED: SIMVASTATIN 20 MG TAB PO SCH (21:00)
[2022-03-19 21:55] VITALS: BP 126/73
[2022-03-19 22:00] VITALS: BP 126/73
[2022-03-20] MEDS: KETOROLAC 30 MG/ML 1ML VIAL IV SCH (02:26)
[2022-03-20 05:57] LABS: BASO % 0.5 % (0.0-1.0); EOS # 0.1 10^3/uL (0.0-0.5); EOS % 1.6 % (0.0-3.0); HEMATOCRIT 36.4 % (36.0-47.0); LYMPH % 34.9 % (24.0-44.0); MEAN CORPUSCULAR HEMOGLOBIN 27.8 pg (27.0-33.0); MEAN CORPUSCULAR VOLUME 84.3 fl (80.0-96.0); MONO # 0.4 10^3/uL (0.0-0.8); MONO % 7.3 % (2.0-8.0); NEUTROPHILS # 3.2 10^3/uL (1.5-8.5); NEUTROPHILS % 55.4 % (36.0-66.0); PLATELET COUNT, AUTOMATED 112 10^3/uL (150-450); RED BLOOD COUNT 4.32 10^6/uL (4.00-5.40); WHITE BLOOD COUNT 5.8 10^3/uL (4.0-10.0)
[2022-03-20 06:00] VITALS: BP 120/67
[2022-03-20 06:14] LABS: BLOOD UREA NITROGEN 13 MG/DL (7-18); CALCIUM LEVEL 8.5 MG/DL (8.5-10.1); CARBON DIOXIDE LEVEL 28 MEQ/L (21-32); CHLORIDE LEVEL 110 MEQ/L (98-107); CREATININE FOR GFR 0.73 MG/DL (0.55-1.30); GLOMERULAR FILTRATION RATE > 60.0 (>51); GLUCOSE, FASTING 113 MG/DL (70-100); POTASSIUM SERUM 3.9 MEQ/L (3.5-5.1); SODIUM LEVEL 143 MEQ/L (136-145)
[2022-03-20] MEDS ORDERED: KETOROLAC 30 MG/ML 1ML VIAL IV PRN (07:10)
[2022-03-20] MEDS ORDERED: ONDANSETRON 4MG/2ML VIAL IV ONE (08:10)
[2022-03-20] MEDS ORDERED: PANTOPRAZOLE 40MG VIAL IV ONE (08:10)
[2022-03-20] MEDS: SENOKOT S TAB PO SCH (08:47)
[2022-03-20] MEDS: ULTRACET TAB PO SCH (08:48)
[2022-03-20] MEDS: HEPARIN SOD (PORCINE) 5000UNITS/ML 1ML VIAL/SYRINGE SC SCH (08:48)
[2022-03-20] MEDS ORDERED: MULTIVITAMINS/MINERALS THERAP 1 TAB PO SCH (09:00)
[2022-03-20] MEDS ORDERED: POTASSIUM CHLORIDE 10MEQ SR TABLET PO SCH (09:00)
[2022-03-20 11:45] VITALS: BP 152/88
[2022-03-20 14:00] VITALS: BP 140/81
[2022-03-20] MEDS ORDERED: TRAM37.53 PO (14:03)
== END 2022-03-20 15:15 | disposition home or self-care (01) ==
LOC: M ED 21:03 → M ED INP 03-19 12:01 → M MS5PR 03-19 13:15
PROVIDERS: ADMIT Internal Medicine Nephrology; ATTEND Internal Medicine Nephrology
DX: M25.461 Effusion, right knee (principal); M25.562 Pain in left knee; M54.50 Low back pain, unspecified; M25.551 Pain in right hip; M25.552 Pain in left hip; R26.89 Other abnormalities of gait and mobility; W17.89XA Other fall from one level to another, initial encounter; Y92.018 Other place in single-family (private) house as the place of occurrence of the external cause; D69.6 Thrombocytopenia, unspecified; I10 Essential (primary) hypertension; K21.9 Gastro-esophageal reflux disease without esophagitis; E03.9 Hypothyroidism, unspecified; K75.81 Nonalcoholic steatohepatitis (NASH); R16.1 Splenomegaly, not elsewhere classified; E78.5 Hyperlipidemia, unspecified; E87.6 Hypokalemia; E66.9 Obesity, unspecified; G47.33 Obstructive sleep apnea (adult) (pediatric); Z85.828 Personal history of other malignant neoplasm of skin; Z79.899 Other long term (current) drug therapy; Z23 Encounter for immunization
CPT/HCPCS: 36415; 70450; 71250; 72125; 72128; 72131; 72220; 73110; 73502; 73564; 73700; 80047; 80048; 85025; 87631; 90471; 90715; 96374; 96375; 96376; 97116; 97161; 97165; 97530; 99285; C9113; J1644; J1885; J2405

== ENCOUNTER → 2023-12-11 | Outpatient (CLI) | payer BC ==
[~2023-12-11] MED LIST changes: +ALFA250T PO; +COQ1100C5 PO; +QC F0.52 PO; +TRAM37.53 PO; +VITA-183 PO; +VITATAB73 PO; +VITMTA PO; +[UNRECOGNIZED DRUG - CODE] PO
[2023-12-11 09:23] LABS: APPEARANCE, URINE HAZY (CLEAR); BACTERIA, URINE AUTO NEGATIVE (NEGATIVE); BILIRUBIN, URINE AUTO NEGATIVE (NEGATIVE); BLOOD, URINE BLOOD 2+ (NEGATIVE); COLOR, URINE YELLOW (YELLOW); GLUCOSE, URINE (UA) AUTO NEGATIVE (NEGATIVE); KETONE, URINE AUTO NEGATIVE (NEGATIVE); LEUKOCYTE ESTERASE, URINE AUTO 3+ (NEGATIVE); MUCUS, URINE SMALL (NEGATIVE); NITRITE, URINE AUTO NEGATIVE (NEGATIVE); PROTEIN, URINE AUTO NEGATIVE (NEGATIVE); RBC, URINE AUTO 4 /HPF (0-3); SPECIFIC GRAVITY URINE AUTO 1.016 (1.002-1.035); SQUAMOUS EPITHELIAL CELL UR AU 5 /HPF (0-6); UROBILINOGEN, URINE AUTO 0.2 mg/dL (0.0-2.0); WBC, URINE AUTO 38 /HPF (0-3)
[2023-12-11 09:29] LABS: BASO % 0.4 % (0.0-1.0); EOS # 0.1 10^3/uL (0.0-0.5); EOS % 2.6 % (0.0-3.0); HEMATOCRIT 43.6 % (36.0-47.0); HEMOGLOBIN 14.7 g/dl (12.0-15.5); LYMPH # 1.6 10^3/uL (1.5-5.0); LYMPH % 30.9 % (24.0-44.0); MEAN CORPUSCULAR HEMOGLOBIN 28.5 pg (27.0-33.0); MEAN CORPUSCULAR HGB CONC 33.7 g/dl (32.0-36.5); MEAN CORPUSCULAR VOLUME 84.5 fl (80.0-96.0); MONO # 0.3 10^3/uL (0.0-0.8); MONO % 6.1 % (2.0-8.0); NEUTROPHILS % 59.8 % (36.0-66.0); PLATELET COUNT, AUTOMATED 121 10^3/uL (150-450); RED BLOOD COUNT 5.16 10^6/uL (4.00-5.40); WHITE BLOOD COUNT 5.1 10^3/uL (4.0-10.0)
[2023-12-11 09:54] LABS: ALBUMIN 3.5 G/DL (3.2-5.2); ALKALINE PHOSPHATASE 64 U/L (46-116); ALT/SGPT 35 U/L (7.0-40); AST/SGOT 16 U/L (<34); BILIRUBIN,TOTAL 0.4 MG/DL (0.3-1.2); BLOOD UREA NITROGEN 11 MG/DL (9-23); CALCIUM LEVEL 8.1 MG/DL (8.5-10.1); CARBON DIOXIDE LEVEL 28 MMOL/L (20-31); CHLORIDE LEVEL 109 MMOL/L (98-107); CHOLESTEROL LEVEL 150 MG/DL (<200); CHOLESTEROL RISK RATIO 4.04 (<5); CREATININE FOR GFR 0.68 MG/DL (0.55-1.30); GLOMERULAR FILTRATION RATE > 60.0 (>51); GLUCOSE, FASTING 113 MG/DL (60-100); HDL CHOLESTEROL 37.1 MG/DL (>40); LDL CHOLESTEROL 88.9 MG/DL (<100); NON-HDL-C 112.9 MG/DL; POTASSIUM SERUM 3.9 MMOL/L (3.5-5.1); SODIUM LEVEL 142 MMOL/L (136-145); TOTAL PROTEIN 6.4 G/DL (5.7-8.2); TRIGLYCERIDES LEVEL 120 MG/DL (<150)
[2023-12-11 09:56] LABS: THYROID STIMULATING HORMONE 1.936 uIU/ML (0.55-4.78)
[2023-12-11 09:59] LABS: HEMOGLOBIN A1c 5.7 % (4.0-6.0)
== END ==
LOC: M LAB 08:37
PROVIDERS: ATTEND Physician Assistant
DX: I10 Essential (primary) hypertension (principal); E78.2 Mixed hyperlipidemia; E03.9 Hypothyroidism, unspecified; R73.03 Prediabetes

== ENCOUNTER → 2024-03-17 | Outpatient (CLI) | payer BC ==
[~2024-03-17] MED LIST changes: +FERR160T4 PO; -SLOW160T8 PO
== END ==
LOC: M WHC 11:14
PROVIDERS: ATTEND Physician Assistant
DX: Z12.31 Encounter for screening mammogram for malignant neoplasm of breast (principal)

== ENCOUNTER → 2025-05-29 | Outpatient (CLI) | payer BC ==
[~2025-05-29] MED LIST changes: -CYCL5TAB PO; +CYCL5TAB4 PO; +D31000CA6 PO; -IBUP1TAB6 PO; +SFHIBU600 PO; +TRAM1TAB42 PO; -TRAM37.53 PO; -VITA-183 PO
[2025-05-29 10:52] LABS: PLATELET COUNT, AUTOMATED 116 10^3/uL (150-450)
[2025-05-29 11:20] LABS: ALT/SGPT 37 U/L (7.0-40); AST/SGOT 24 U/L (<34); CALCIUM LEVEL 8.6 MG/DL (8.3-10.6); CARBON DIOXIDE LEVEL 29 MMOL/L (20-31); CHLORIDE LEVEL 108 MMOL/L (98-107); CHOLESTEROL LEVEL 164 MG/DL (<200); CHOLESTEROL RISK RATIO 3.55 (<5); CREATININE FOR GFR 0.70 MG/DL (0.55-1.30); GLOMERULAR FILTRATION RATE > 90.0 (>45); LDL CHOLESTEROL 97.7 MG/DL (<100); NON-HDL-C 117.9 MG/DL; POTASSIUM SERUM 4.1 MMOL/L (3.5-5.1); SODIUM LEVEL 146 MMOL/L (136-145); TRIGLYCERIDES LEVEL 101 MG/DL (<150)
[2025-05-29 11:21] LABS: ESTIMATED AVERAGE GLUCOSE 120.0 MG/DL (60-110)
== END ==
LOC: M LAB 09:21
PROVIDERS: ATTEND Physician Assistant
DX: R73.03 Prediabetes (principal); I10 Essential (primary) hypertension; E78.2 Mixed hyperlipidemia

== ENCOUNTER → 2025-06-20 | Outpatient (CLI) | payer BC | LOC: M WHC 10:37 | PROVIDERS: ATTEND Nurse Practitioner Family | DX: Z13.820 Encounter for screening for osteoporosis (principal); Z12.31 Encounter for screening mammogram for malignant neoplasm of breast; M85.851 Other specified disorders of bone density and structure, right thigh; M85.852 Other specified disorders of bone density and structure, left thigh; M85.88 Other specified disorders of bone density and structure, other site; R92.313 Mammographic fatty tissue density, bilateral breasts ==